=== PATIENT | female | born 1935 | race Caucasian/White ===

== ENCOUNTER → 2019-10-02 09:15 | Outpatient (REF) | payer MEDICARE, SELFPAY ==
[2019-10-02 12:26] LABS: Hematocrit 40.3 % (37-47); Hemoglobin 13.1 g/dL (12.0-15.0); Mean Corp Hgb Conc 32.5 g/dL (32-36); Mean Corpuscular Hgb 31.9 pg (27.0-32.0); Mean Corpuscular Volume 98.1 fL (81-99); Mean Platelet Vol. 11.6 fl (6.2-12.0); Platelet Count 275 K/mm3 (150-450); RBC Distribution Width CV 13.7 % (11.6-14.6); RBC Distribution Width SD 49.6 fl (35.1-43.9); Red Blood Count 4.11 M/mm3 (4.2-5.4); White Blood Count 8.3 K/mm3 (4.4-11.0)
[2019-10-02 12:48] LABS: AST(SGOT) 19 U/L (15-37); Alanine Aminotransfer ALT/SGPT 20 U/L (13-56); Albumin, Serum 3.2 g/dL (3.2-5.0); Alkaline Phosphatase 63 U/L (45-117); Anion Gap 9 (5-15); BUN 16 mg/dL (7-18); Calcium,Total 8.6 mg/dL (8.5-10.1); Chloride 105 mmol/L (98-107); Cholesterol 138 mg/dL (200); EST Glomerular Filtration Rate 56 mL/min (>60); Est Glom Filt Rate - Afr Amer 68 mL/min (>60); Globulin 3.1 g/dL (2.2-4.2); Glucose 96 mg/dL (74-106); High Density Lipoprotein 71 mg/dL; Potassium 3.4 mmol/L (3.5-5.1); Protein, Total 6.3 g/dL (6.4-8.2); Sodium Level 141 mmol/L (136-145); Triglycerides 110 mg/dL; Very Low Density Lipoprotein 22 mg/dL (5-40)
[2019-10-02 13:09] LABS: Hemoglobin A1c 6.2 % (3.8-5.6)
== END ==
PROVIDERS: PCP Family Medicine; Referring Provider Family Medicine; Visit Provider Family Medicine
DX: E11.9 Type 2 diabetes mellitus without complications (principal); I10 Essential (primary) hypertension; E78.5 Hyperlipidemia, unspecified
CPT/HCPCS: 80053; 80061; 83036; 85027

== ENCOUNTER → 2019-11-17 15:30 | Outpatient (REF) | payer MEDICARE, SELFPAY ==
[2019-11-17 16:50] LABS: Absolute Neutrophil Count 7.6 X10^3/uL (2.0-7.7); Basophil# 0.02 X10^3/uL; Basophil% 0.2 % (0-1); Eosinophil# 0.02 X10^3/uL; Eosinophils% 0.2 % (0-5); Hematocrit 38.3 % (37-47); Hemoglobin 12.3 g/dL (12.0-15.0); Lymphocyte % 18.1 % (19-41); Mean Corp Hgb Conc 32.1 g/dL (32-36); Mean Corpuscular Hgb 31.5 pg (27.0-32.0); Mean Corpuscular Volume 98.2 fL (81-99); Mean Platelet Vol. 11.9 fl (6.2-12.0); Monocyte% 11.8 % (0-10); NRBC Flagged by Analyzer 0 % (0-5); Neutrophil # 7.64 X10^3/uL (2.7-7.7); Neutrophil % 69.2 % (47-70); Platelet Count 259 K/mm3 (150-450); RBC Distribution Width CV 14.2 % (11.6-14.6); RBC Distribution Width SD 51.8 fl (35.1-43.9)
[2019-11-17 17:27] LABS: Anion Gap 6 (5-15); BUN 14 mg/dL (7-18); BUN/Creat Ratio 17.5 RATIO (10-20); Calcium,Total 8.6 mg/dL (8.5-10.1); Chloride 108 mmol/L (98-107); EST Glomerular Filtration Rate 73 mL/min (>60); Est Glom Filt Rate - Afr Amer 88 mL/min (>60); Glucose 101 mg/dL (74-106); Potassium 3.2 mmol/L (3.5-5.1); Sodium Level 147 mmol/L (136-145); Thyroid Stim Hormone (TSH) 1.18 uIU/mL (0.358-3.74)
== END ==
PROVIDERS: PCP Family Medicine; Visit Provider Family Medicine
DX: I50.42 Chronic combined systolic (congestive) and diastolic (congestive) heart failure (principal)
CPT/HCPCS: 80048; 84443; 85025

== ENCOUNTER → 2020-01-02 17:25 | Outpatient (REF) | payer MEDICARE, SELFPAY ==
[2020-01-03 11:42] LABS: Mucous, Urine 0 SEEN /hpf (<or=2+); Red Blood Cells-Urine 0 SEEN /hpf (0-5)
[2020-01-03 11:59] LABS: Color, Urine Yellow (Yellow); Glucose, Dipstick Normal (Normal); Ketone-Dipstick Negative (Negative); Leukocyte Esterase-Dipstick 500 /ul (Negative); Nitrite-Dipstick Negative (Negative); Occult Blood-Urine 10 /ul (Negative); Protein-Dipstick 15 mg/dl (Negative); Specific Gravity, Urine 1.015 (1.002-1.030); Urine Bilirubin Dipstick Negative (Negative); Urine Clarity Cloudy (Clear); Urine Urobilinogen Normal (Normal)
[2020-01-03 12:23] LABS: Squamous Epithelial Cells - UA 10-25 SEEN /hpf (5-10)
[2020-01-03 12:24] LABS: Bacteria 3+ /hpf (None Seen); White Blood Cells 50-100 SEEN /hpf (0-5)
== END ==
LOC: OLS.BROOKB 17:25
PROVIDERS: PCP Family Medicine; Referring Provider Family Medicine; Visit Provider Family Medicine
DX: R53.83 Other fatigue (principal); R41.0 Disorientation, unspecified
CPT/HCPCS: 81001; 87086; 87088; 87186

== ENCOUNTER → 2020-04-06 05:00 | Outpatient (REF) | payer MEDICARE, SELFPAY ==
[2020-04-06 06:48] LABS: Hematocrit 39.2 % (37-47); Hemoglobin 12.9 g/dL (12.0-15.0); Mean Corp Hgb Conc 32.9 g/dL (32-36); Mean Corpuscular Hgb 30.9 pg (27.0-32.0); Mean Platelet Vol. 11.2 fl (6.2-12.0); Platelet Count 287 K/mm3 (150-450); RBC Distribution Width CV 14.6 % (11.6-14.6); RBC Distribution Width SD 50.5 fl (35.1-43.9); Red Blood Count 4.17 M/mm3 (4.2-5.4); White Blood Count 11.5 K/mm3 (4.4-11.0)
[2020-04-06 07:24] LABS: ALB/GLOB Ratio 0.7 RATIO (0.9-2.4); AST(SGOT) 13 U/L (15-37); Alanine Aminotransfer ALT/SGPT 14 U/L (13-56); Albumin, Serum 2.5 g/dL (3.2-5.0); Alkaline Phosphatase 66 U/L (45-117); Anion Gap 6 (5-15); BUN 25 mg/dL (7-18); Calcium,Total 8.7 mg/dL (8.5-10.1); Chloride 105 mmol/L (98-107); Cholesterol 133 mg/dL (200); Creatinine, Serum 1.19 mg/dL (0.55-1.02); EST Glomerular Filtration Rate 46 mL/min (>60); Est Glom Filt Rate - Afr Amer 56 mL/min (>60); Globulin 3.4 g/dL (2.2-4.2); Glucose 65 mg/dL (74-106); High Density Lipoprotein 57 mg/dL; Potassium 2.7 mmol/L (3.5-5.1); Protein, Total 5.9 g/dL (6.4-8.2); Sodium Level 142 mmol/L (136-145); Triglycerides 114 mg/dL; Very Low Density Lipoprotein 23 mg/dL (5-40)
[2020-04-06 08:33] LABS: Hemoglobin A1c 5.2 % (3.8-5.6)
== END ==
LOC: OLS.BROOKB 05:00
PROVIDERS: PCP Family Medicine; Referring Provider Family Medicine; Visit Provider Family Medicine
DX: E11.9 Type 2 diabetes mellitus without complications (principal); I10 Essential (primary) hypertension
CPT/HCPCS: 36415; 80053; 80061; 83036; 85027

== ENCOUNTER → 2020-04-12 10:30 | Outpatient (REF) | payer MEDICARE, SELFPAY ==
[2020-04-12 12:17] LABS: Anion Gap 3 (5-15); BUN 13 mg/dL (7-18); BUN/Creat Ratio 12.1 RATIO (10-20); Calcium,Total 8.9 mg/dL (8.5-10.1); Chloride 109 mmol/L (98-107); Creatinine, Serum 1.07 mg/dL (0.55-1.02); EST Glomerular Filtration Rate 52 mL/min (>60); Est Glom Filt Rate - Afr Amer 63 mL/min (>60); Glucose 102 mg/dL (74-106); Sodium Level 145 mmol/L (136-145)
== END ==
LOC: OLS.BROOKB 10:30
PROVIDERS: PCP Family Medicine; Visit Provider Family Medicine
DX: E11.9 Type 2 diabetes mellitus without complications (principal); I10 Essential (primary) hypertension
CPT/HCPCS: 36415; 80048

== ENCOUNTER 2020-06-17 04:45 | Emergency (ER) | payer MEDICARE, SELFPAY ==
[2020-06-17 04:46] VITALS: BP 124/90; PULSE 64; RESP 16; TEMP 36.3; O2SAT 99; BMI 27.1
--- NOTE | 2020-06-17 04:55 | ED.DCSUM_ITS ---
- ER Visit Summary Date of Service: 06/17/20 Chief Complaint: Nausea, vomiting and diarrhea History of Present Illness: The patient is a 84 F who has nausea, vomiting and diarrhea. It started 1 hour prior to arrival. Patient is from [facility], dementia unit. The patient is currently denying any abdominal pain. She is alert and oriented to self only which is her baseline. No meds were given by EMS or the nursing facility. The patient is a full code. She had no vomiting with EMS in route. History is limited from the patient due to her dementia. Physical Examination: Vital signs reviewed. HEENT exam unremarkable. Heart is regular rate and rhythm without murmurs. Lungs are clear to auscultation. Abdomen is soft and nontender. Extremities reveal no edema. Skin exam normal. Neurologic exam shows the patient is alert to self only which is likely her bas bridget. She moves all 4 extremities equally. There is no facial droop or slurred speech. Test Results: White blood cell count is 15.1, potassium is 5.3 but the specimen was moderately hemolyzed. Chloride 108, glucose 130, BUN 23, creatinine 1.51. Emergency Department Course and Treatment: Patient was given normal saline and Zofran. Upon reevaluation the patient was sleeping comfortably. Her abdomen remains soft and nontender. I feel the patient can be discharged back to her facility. The will have her follow-up with the physician there. Treatment Plan: [] Disposition: Discharge Impression: Nausea, vomiting and diarrhea This note was generated with [employer] dictation software. It may contain incorrect words, spelling, and punctuation that were not noted in review of the chart prior to signing ED Disposition - Plan for ED Patient: Disposition: Home or Assisted Living Instructions: ED Diet for Vomiting or Diarrhea Adult Referrals: Lupis Newberry MD [Primary Care Provider] -
[2020-06-17] MEDS: Ondansetron 4 MG/2 ML Vial IV (05:08)
[2020-06-17 05:13] LABS: Absolute Lymphocyte Count 0.95 X10^3/uL (0.83-4.51); Absolute Neutrophil Count 13.3 X10^3/uL (2.0-7.7); Basophil# 0.06 X10^3/uL; Basophil% 0.4 % (0-1); Eosinophil# 0.03 X10^3/uL; Eosinophils% 0.2 % (0-5); Lymphocyte # 0.95 X10^3/ul (4.0); Lymphocyte % 6.3 % (19-41); Mean Corp Hgb Conc 33.3 g/dL (32-36); Mean Corpuscular Hgb 32.1 pg (27.0-32.0); Mean Corpuscular Volume 96.3 fL (81-99); Mean Platelet Vol. 10.9 fl (6.2-12.0); Monocyte% 4.6 % (0-10); NRBC Flagged by Analyzer 0 % (0-5); Neutrophil # 13.25 X10^3/uL (2.7-7.7); Neutrophil % 87.8 % (47-70); Platelet Count 290 K/mm3 (150-450); RBC Distribution Width CV 16.7 % (11.6-14.6); RBC Distribution Width SD 59.2 fl (35.1-43.9); Red Blood Count 4.05 M/mm3 (4.2-5.4); White Blood Count 15.1 K/mm3 (4.4-11.0)
[2020-06-17 05:35] LABS: AST(SGOT) 33 U/L (15-37); Alanine Aminotransfer ALT/SGPT 18 U/L (13-56); Albumin, Serum 3.2 g/dL (3.2-5.0); Alkaline Phosphatase 65 U/L (45-117); Anion Gap 5 (5-15); BUN 23 mg/dL (7-18); BUN/Creat Ratio 17.6 RATIO (10-20); Calcium,Total 8.8 mg/dL (8.5-10.1); Chloride 108 mmol/L (98-107); Creatinine, Serum 1.31 mg/dL (0.55-1.02); EST Glomerular Filtration Rate 41 mL/min (>60); Est Glom Filt Rate - Afr Amer 50 mL/min (>60); Estimated Creatinine Clearance 29.79 ml/min; Globulin 3.2 g/dL (2.2-4.2); Glucose 158 mg/dL (74-106); Lipase 79 U/L (73-393); Potassium 5.3 mmol/L (3.5-5.1); Protein, Total 6.4 g/dL (6.4-8.2); Sodium Level 140 mmol/L (136-145)
[2020-06-17 05:53] VITALS: BP 120/61; PULSE 68; RESP 18; O2SAT 100
== END 2020-06-17 07:35 | disposition home or self-care (01) ==
PROVIDERS: Emergency Provider Emergency Medicine; PCP Family Medicine
DX: R11.2 Nausea with vomiting, unspecified (principal); R19.7 Diarrhea, unspecified; E78.00 Pure hypercholesterolemia, unspecified; I10 Essential (primary) hypertension; E11.9 Type 2 diabetes mellitus without complications; F03.90 Unspecified dementia, unspecified severity, without behavioral disturbance, psychotic disturbance, mood disturbance, and anxiety; Z79.84 Long term (current) use of oral hypoglycemic drugs; Z79.82 Long term (current) use of aspirin
CPT/HCPCS: 80053; 83690; 85025; 96374; 99284; J7030; A4216; J2405

== ENCOUNTER → 2020-09-15 05:00 | Outpatient (REF) | payer MEDICARE, SELFPAY ==
[2020-09-15 08:13] LABS: Anion Gap 6 (5-15); BUN 20 mg/dL (7-18); BUN/Creat Ratio 20.5 RATIO (10-20); Chloride 108 mmol/L (98-107); Creatinine, Serum 0.98 mg/dL (0.55-1.02); EST Glomerular Filtration Rate 58 mL/min (>60); Est Glom Filt Rate - Afr Amer 70 mL/min (>60); Glucose 80 mg/dL (74-106); Potassium 3.9 mmol/L (3.5-5.1); Sodium Level 144 mmol/L (136-145)
== END ==
LOC: OLS.BROOKB 05:00
PROVIDERS: PCP Family Medicine; Referring Provider Family Medicine; Visit Provider Family Medicine
DX: Z79.899 Other long term (current) drug therapy (principal)
CPT/HCPCS: 36415; 80048

== ENCOUNTER → 2020-10-01 05:00 | Outpatient (REF) | payer MEDICARE, SELFPAY ==
[2020-10-01 08:31] LABS: Hematocrit 36.4 % (37-47); Hemoglobin 11.8 g/dL (12.0-15.0); Mean Corp Hgb Conc 32.4 g/dL (32-36); Mean Corpuscular Hgb 31.2 pg (27.0-32.0); Mean Corpuscular Volume 96.3 fL (81-99); Platelet Count 277 K/mm3 (150-450); RBC Distribution Width CV 14.4 % (11.6-14.6); RBC Distribution Width SD 51.2 fl (35.1-43.9); Red Blood Count 3.78 M/mm3 (4.2-5.4); White Blood Count 5.8 K/mm3 (4.4-11.0)
[2020-10-01 08:56] LABS: AST(SGOT) 19 U/L (15-37); Alanine Aminotransfer ALT/SGPT 19 U/L (13-56); Albumin, Serum 2.9 g/dL (3.2-5.0); Alkaline Phosphatase 68 U/L (45-117); Anion Gap 4 (5-15); BUN 18 mg/dL (7-18); BUN/Creat Ratio 19.4 RATIO (10-20); Calcium,Total 8.6 mg/dL (8.5-10.1); Chloride 109 mmol/L (98-107); Cholesterol 157 mg/dL (200); Creatinine, Serum 0.93 mg/dL (0.55-1.02); EST Glomerular Filtration Rate 61 mL/min (>60); Est Glom Filt Rate - Afr Amer 74 mL/min (>60); Glucose 74 mg/dL (74-106); High Density Lipoprotein 59 mg/dL; Potassium 4.1 mmol/L (3.5-5.1); Protein, Total 5.9 g/dL (6.4-8.2); Sodium Level 142 mmol/L (136-145); Triglycerides 88 mg/dL; Very Low Density Lipoprotein 18 mg/dL (5-40)
[2020-10-01 09:04] LABS: Hemoglobin A1c 5.2 % (3.8-5.6)
== END ==
LOC: OLS.BROOKB 05:00
PROVIDERS: PCP Family Medicine; Referring Provider Family Medicine; Visit Provider Family Medicine
DX: E11.9 Type 2 diabetes mellitus without complications (principal); I10 Essential (primary) hypertension; E78.5 Hyperlipidemia, unspecified
CPT/HCPCS: 36415; 80053; 80061; 83036; 85027

== ENCOUNTER 2020-12-22 10:47 | Emergency (ER) | payer MEDICARE, SELFPAY ==
[2020-12-22 10:49] VITALS: BP 176/78; PULSE 52; RESP 16; TEMP 36.6; O2SAT 100; BMI 27.1
--- NOTE | 2020-12-22 11:02 | CT_ITS ---
STUDY: CT BRAIN WITHOUT CONTRAST REASON FOR EXAM: Female, 85 years old. Head trauma due to a fall. Dementia. RADIATION DOSAGE (If Supplied By Facility): CTDIvol = ( 44.99 ) mGy, DLP = ( 745.49 ) mGycm TECHNIQUE: Transaxial CT imaging of the brain was performed without administration of intravenous contrast material. Individualized dose optimization techniques were used for this CT. COMPARISON: No relevant priors. FINDINGS: Mild degree of soft tissue swelling overlying the left frontal bone. Normal calvarium. There is moderate cerebral atrophy with widening of the extra-axial spaces and ventricular dilatation. There are areas of decreased attenuation within the white matter tracts of the supratentorial brain, consistent with microvascular disease changes. Normal basal ganglia and thalami. Normal brainstem. Normal cerebellum. There is no intracranial hemorrhage. There are no findings of an acute ischemic infarction. Normal visualized paranasal sinuses. CT/Brain/Head without Contrast IMPRESSION: Chronic involutional changes of the brain. Mild degree of soft tissue swelling overlying the left frontal bone. Electronically Signed: Sushil Hyatt MD at 12:13 EDT , Service support ,
--- NOTE | 2020-12-22 11:02 | RAD_ITS ---
STUDY: X-RAY - PELVIS REASON FOR EXAM: Female, 85 years old. Fall TECHNIQUE: One view of the pelvis was obtained. COMPARISON: None. FINDINGS: Moderate amount of fecal material is seen in the colon. Normal visualized soft tissue structures. There is narrowing with cortical sclerosis and osteophyte formation of the sacroiliac joint consistent with degenerative osteoarthritic changes. Normal visualized bilateral superior and inferior pubic rami. There are degenerative changes of the pubic symphysis with articular narrowing and sclerosis. Normal ischial tuberosities. Normal visualized right femoral head. Normal right acetabulum. There is moderate articular joint space narrowing of the right hip. Normal visualized left femoral head. Normal left acetabulum. There is moderate articular joint space narrowing of the left hip. RAD/Pelvis 1 or 2 Views IMPRESSION: Degenerative changes. No fractures seen. Electronically Signed: Sushil Hyatt MD at 12:16 EDT , Service support ,
--- NOTE | 2020-12-22 11:04 | EDS_ITS ---
HPI HPI - Fall History of Present Illness Chief Complaint: Fall Informant: patient and EMS Occured/Mechanism Occurred: Today Narrative Narrative: Very limited history available on this very demented elderly female presenting from memory unit after a fall that was unwitnessed. She apparently was last seen a couple hours before someone noticed her on the floor with blood on her head. She was conscious. She is confused and it is unknown whether this is different from her baseline. Patient states she does not feel like she is in pain, however history is extremely limited due to her dementia, and exam is limited due to the fact that the patient gets very nasty during my exam, swinging at my hand as I try to examine her multiple times. [facility] Medical History (Updated 12/22/20 @ 16:[address] Gentry Rhodes MD) Dementia HTN (hypertension) Hyperlipidemia Type 2 diabetes mellitus Home Medications aspirin 81 mg PO DAILY@0800 06/17/20 [History Last Taken Unknown] buspirone 10 mg PO TID 06/17/20 [History Last Taken Unknown] divalproex 125 mg PO BIDCM 06/17/20 [History Last Taken Unknown] furosemide 40 mg PO DAILY 06/17/20 [History Last Taken Unknown] lisinopril 20 mg PO DAILY 06/17/20 [History Last Taken Unknown] meloxicam 7.5 mg PO DAILY 06/17/20 [History Last Taken Unknown] memantine 1 each PO BID 06/17/20 [History Last Taken Unknown] metformin 250 mg PO BID 06/17/20 [History Last Taken Unknown] metoprolol succinate 50 mg PO DAILY 06/17/20 [History Last Taken Unknown] potassium 20 meq PO DAILY 06/17/20 [History Last Taken Unknown] sertraline 50 mg PO DAILY 06/17/20 [History Last Taken Unknown] simvastatin 40 mg PO QHS 06/17/20 [History Last Taken Unknown] Allergy/AdvReac Type Severity Reaction Status Date / Time No Known Allergies Allergy Verified 06/17/20 04:54 Social History Smoking Status: Former smoker ROS ROS ED Review of Systems ROS Unobtainable: due to mental condition EXAM Physical Exam Const Vital Signs: 12/22/20 10:49 12/22/20 11:48 12/22/20 12:48 Temperature 97.8 F Temperature Source Temporal Pulse Rate 52 L 50 L Respiratory Rate 16 16 Respiratory Effort Normal Non-Labored Respiratory Depth Normal Respiratory Pattern Normal Blood Pressure 176/78 H 171/51 H Blood Pressure Mean 110 91 Pulse Ox 100 100 Oxygen Delivery Method Room Air Room Air Room Air 12/22/20 14:00 12/22/20 15:34 Temperature Temperature Source Pulse Rate 71 Respiratory Rate 16 18 Respiratory Effort Respiratory Depth Respiratory Pattern Blood Pressure 165/85 H Blood Pressure Mean Pulse Ox 98 Oxygen Delivery Method Positive well nourished and well developed General Appearance ED: well developed and NAD HEENT Reports moist mucous membranes HEENT Narrative: Left frontal scalp small abrasion without laceration. No crepitance or depression. Not able to evaluate tympanic membranes due to patient swatting the examiner away and screaming at me. She has no otorrhea or bleeding on gross inspection. Mild tenderness to the nose without deformity, clotted blood at both nares without active bleeding, face is otherwise stable and nontender with no signs of trauma. normocephalic Eyes PERRL and EOMs intact bilaterally Neck full ROM and supple Resp normal respiratory effort and clear to auscultation bilaterally Cardio regular rate, regular rhythm and no murmurs GI non-tender and non-distended Auscultation: normoactive bowel sounds Palpation: soft Back/Spine no CVA tenderness General Back: other FROM Cervical Spine: Negative for cervical spine tenderness Thoracic Spine / Upper Back: Negative for thoracic spinal tenderness Lumbar Spine / Lower Back: Negative for lumbar spinal tenderness Extremity normal to inspection Extremity Narrative: Multiple contusions both forearms, nothing is acutely tender. No deformities. Passive range of motion throughout all joints without any acute pain, all 4 extremities. General Extremety ED: Yes edema; Negative for pulses abnormal or tenderness General Extremity: edema bilateral lower extremity Details: moderate; Negative for pulses abnormal Neuro CN's II-XII intact bilaterally and no sensory deficits noted Sahra Coma Scale: document GCS findings To Voice Localizes to Pain Confused 12 Sensorium / Orientation: awake, alert and orientation impaired Motor Exam: strength 5/5 throughout Skin no rashes or lesions noted Skin Narrative: Multiple contusions both forearms MDM MDM MDM Narrative Medical decision making narrative: CT head showing evidence of soft tissue contusion and no intracranial hemorrhage as below, a mitral rotation 1 view pelvis x-ray and 1 view chest x-ray also showed nothing acute. There is some cardiomegaly. We were able to clean the patient up and get her on her feet, she is able to bear weight with some assistance without any difficulty, I think she is stable to go back to assisted living/memory unit at this time. Certainly is possible she cracked her nose but she complains of no pain unless I press on it, I do not think she needs a CT of the face and she has no signs of facial instability or other injury there. Radiography Diagnostic Testing: Radiology Impression Brain CT 12/22/20 11:02 IMPRESSION: Chronic involutional changes of the brain. Mild degree of soft tissue swelling overlying the left frontal bone. Electronically Signed: Sushil Hyatt MD at 12:13 EDT , Service support , Pelvis X-Ray 12/22/20 11:02 IMPRESSION: Degenerative changes. No fractures seen. Electronically Signed: Sushil Hyatt MD at 12:16 EDT , Service support , Chest X-Ray 12/22/20 11:40 IMPRESSION: Cardiomegaly. Electronically Signed: Sushil Hyatt MD at 12:17 EDT , Service support , Discharge Plan Triage Chief Complaint: Fall ED Provider: Gentry Rhodes Dx/Rx/DC Orders Clinical Impression: Fall in elderly patient, Closed head injury without concussion, Contusion of nose Instructions: ED Head Injury (Adult) Prescriptions: No Action furosemide 40 MG tablet 40 mg PO DAILY RF: 0 buspirone 5 MG tablet 10 mg PO TID RF: 0 metformin 500 MG tablet 250 mg PO BID RF: 0 lisinopril 20 MG tablet 20 mg PO DAILY RF: 0 aspirin 81 MG tablet 81 mg PO DAILY@0800 RF: 0 meloxicam 7.5 MG tablet 7.5 mg PO DAILY RF: 0 divalproex 125 MG tablet 125 mg PO BIDCM RF: 0 memantine 1 EACH tablets,dose pack 1 each PO BID RF: 0 metoprolol succinate 50 MG tablet extended release 24 hr 50 mg PO DAILY RF: 0 simvastatin 40 MG tablet 40 mg PO QHS RF: 0 potassium 99 MG tablet 20 meq PO DAILY RF: 0 sertraline 50 MG tablet 50 mg PO DAILY RF: 0 Primary Care Provider: Lupis Newberry Referrals: Lupis Newberry MD [Primary Care Provider] - 3-5 Days if not improving Disposition Disposition: Home, Self Care Discharge Date/Time: 12/22/20 15:34
--- NOTE | 2020-12-22 11:40 | RAD_ITS ---
STUDY: X-RAY CHEST REASON FOR EXAM: Female, 85 years old. Fall TECHNIQUE: Single AP portable view of the chest. COMPARISON: None. FINDINGS: The lungs are clear and expanded. There is no demonstrated pleural abnormality. There is moderate cardiac enlargement. Normal mediastinum and mu. Normal visualized pulmonary arteries. There is atherosclerotic calcification of the aortic arch with tortuosity. There are degenerative changes of the visualized thoracic spine. Normal visualized ribs, clavicles, and shoulders. There is no demonstrated abnormality of the visualized soft tissue structures of the upper abdomen. RAD/Chest 1 View (Portable) IMPRESSION: Cardiomegaly. Electronically Signed: uSshil Hyatt MD at 12:17 EDT , Service support ,
--- NOTE | 2020-12-22 12:47 | ED.RN ---
REPORT TO DIEGO FERNANDEZ AT [facility]. CURRENTLY AWAITING TRANSPORT.
[2020-12-22 12:48] VITALS: BP 171/51; PULSE 50; RESP 16; O2SAT 100
--- NOTE | 2020-12-22 13:00 | NURSING ---
CALLED [facility], TALKED TO GHAZAL. ETA IS 90 MIN
[2020-12-22 14:00] VITALS: RESP 16
[2020-12-22 15:34] VITALS: BP 165/85; PULSE 71; RESP 18; O2SAT 98
== END 2020-12-22 15:34 | disposition home or self-care (01) ==
PROVIDERS: Emergency Provider Emergency Medicine; PCP Family Medicine
DX: S09.90XA Unspecified injury of head, initial encounter (principal); S00.33XA Contusion of nose, initial encounter; W19.XXXA Unspecified fall, initial encounter; Z87.891 Personal history of nicotine dependence
CPT/HCPCS: 70450; 71045; 72170; 99285

== ENCOUNTER → 2020-12-23 09:00 | Outpatient (REF) | payer MEDICARE, SELFPAY ==
[2020-12-23 10:46] LABS: Absolute Lymphocyte Count 1.66 X10^3/uL (0.83-4.51); Absolute Neutrophil Count 5.7 X10^3/uL (2.0-7.7); Basophil# 0.04 X10^3/uL; Basophil% 0.5 % (0-1); Eosinophil# 0.02 X10^3/uL; Eosinophils% 0.2 % (0-5); Hematocrit 38.7 % (37-47); Hemoglobin 12.4 g/dL (12.0-15.0); Lymphocyte # 1.66 X10^3/ul (0.83-4.51); Lymphocyte % 20.5 % (19-41); Mean Corpuscular Hgb 30.5 pg (27.0-32.0); Mean Corpuscular Volume 95.3 fL (81-99); Mean Platelet Vol. 11.8 fl (6.2-12.0); Monocyte# 0.67 X10^3/uL; Monocyte% 8.3 % (0-10); NRBC Flagged by Analyzer 0 % (0-5); Neutrophil # 5.66 X10^3/uL (2.7-7.7); Neutrophil % 70.1 % (47-70); Platelet Count 262 K/mm3 (150-450); RBC Distribution Width CV 15.3 % (11.6-14.6); RBC Distribution Width SD 53.3 fl (35.1-43.9); Red Blood Count 4.06 M/mm3 (4.2-5.4); White Blood Count 8.1 K/mm3 (4.4-11.0)
[2020-12-23 11:02] LABS: ALB/GLOB Ratio 0.7 RATIO (0.9-2.4); AST(SGOT) 39 U/L (15-37); Alanine Aminotransfer ALT/SGPT 21 U/L (13-56); Albumin, Serum 2.4 g/dL (3.2-5.0); Alkaline Phosphatase 82 U/L (45-117); Anion Gap 5 (5-15); BUN 20 mg/dL (7-18); BUN/Creat Ratio 27.9 RATIO (10-20); Calcium,Total 8.7 mg/dL (8.5-10.1); Chloride 111 mmol/L (98-107); Creatinine, Serum 0.72 mg/dL (0.55-1.02); EST Glomerular Filtration Rate 83 mL/min (>60); Est Glom Filt Rate - Afr Amer 100 mL/min (>60); Globulin 3.3 g/dL (2.2-4.2); Glucose 69 mg/dL (74-106); Potassium 4.3 mmol/L (3.5-5.1); Protein, Total 5.7 g/dL (6.4-8.2); Sodium Level 142 mmol/L (136-145); Thyroid Stim Hormone (TSH) 3.36 uIU/mL (0.358-3.74)
== END ==
LOC: OLS.BROOKB 09:00
PROVIDERS: PCP Family Medicine; Visit Provider Family Medicine
DX: R41.82 Altered mental status, unspecified (principal)
CPT/HCPCS: 36415; 80053; 84443; 85025

== ENCOUNTER 2020-12-25 06:54 | Emergency (ER) | payer MEDICARE, SELFPAY ==
[2020-12-25 06:55] VITALS: BP 136/84; PULSE 71; RESP 18; TEMP 36.6; O2SAT 97; BMI 29.2
--- NOTE | 2020-12-25 07:30 | CT_ITS ---
HISTORY: Injury/Pain. TECHNIQUE: Multiple axial images were obtained of the brain without intravenous contrast. A radiation dose optimization technique was used for this scan. # of images incl. paperwork: 245. COMPARISON: 12/22/2020. FINDINGS: BRAIN PARENCHYMA:Multiple small foci and zones of low attenuation in the cerebral white matter most compatible with chronic small vessel ischemic gliosis. INTRACRANIAL HEMORRHAGE: No acute intracranial hemorrhage. CSF SPACES/MASS EFFECT: Diffuse atrophy with compensatory ventricular enlargement. No midline shift or other significant mass effect. ORBITS: Unremarkable. CALVARIUM: Intact. Decreased left frontal scalp contusion. PARANASAL SINUSES AND MASTOID AIR CELLS: Clear. CT/Brain/Head without Contrast IMPRESSION: No acute intracranial process identified. Chronic small vessel ischemic gliosis. Individualized dose optimization techniques were used for this CT. at 0810 Reported and signed by: Lizbeth Soliman MD Electronically Signed: Lizbeth Soliman MD at 8:09 EDT Tel , Service support ,
--- NOTE | 2020-12-25 07:30 | CT_ITS ---
HISTORY: Injury/Pain. TECHNIQUE: Helically acquired images were obtained of the cervical spine. 2D reformatted images were reviewed. A radiation dose optimization technique was used for this scan. # of images incl. paperwork: 404. IV Contrast dosage and agent: None. COMPARISON: None. FINDINGS: VERTEBRAE: No acute fracture identified. VERTEBRAL ALIGNMENT: Minimal anterolisthesis of C2-3, C3-4, C4-5, and C7-T1. Reversal of the cervical lordosis. DISCS: Degenerative discogenic changes. Posterior disc bulge osteophyte complexes with uncovertebral and facet arthropathy. Mild central canal stenosis at multiple levels. Foraminal narrowing at multiple levels. SOFT TISSUES: No prevertebral soft tissue swelling. Multinodular thyroid. CT/Spine Cervical without Contras IMPRESSION: No evidence of acute cervical spinal fracture or dislocation. Multilevel degenerative change. Individualized dose optimization techniques were used for this CT. at 0813 Reported and signed by: Lizbeth Soliman MD Electronically Signed: Lizbeth Soliman MD at 8:12 EDT Tel , Service support ,
--- NOTE | 2020-12-25 07:55 | EDS_ITS ---
HPI History of Present Illness Chief Complaint: Head Injury Informant: patient and SNF Limited: dementia Onset/Context/Timing Onset: Today Mechanism/Context: Fall Location: Head Narrative Narrative: Patient presents after a fall that occurred this morning. Patient has a history of dementia and is a poor historian. Staff at the [facility] reports that the patient fell out of bed. Staff noted some bleeding from the nose. Patient denies any neck pain. Staff is unsure if there was any loss of consciousness. [facility] Medical History Dementia HTN (hypertension) Hyperlipidemia Type 2 diabetes mellitus Home Medications aspirin 81 mg PO DAILY@0800 06/17/20 [History Last Taken Unknown] buspirone 10 mg PO TID 06/17/20 [History Last Taken Unknown] divalproex 125 mg PO BIDCM 06/17/20 [History Last Taken Unknown] furosemide 40 mg PO DAILY 06/17/20 [History Last Taken Unknown] lisinopril 20 mg PO DAILY 06/17/20 [History Last Taken Unknown] meloxicam 7.5 mg PO DAILY 06/17/20 [History Last Taken Unknown] memantine 1 each PO BID 06/17/20 [History Last Taken Unknown] metformin 250 mg PO BID 06/17/20 [History Last Taken Unknown] metoprolol succinate 50 mg PO DAILY 06/17/20 [History Last Taken Unknown] potassium 20 meq PO DAILY 06/17/20 [History Last Taken Unknown] sertraline 50 mg PO DAILY 06/17/20 [History Last Taken Unknown] simvastatin 40 mg PO QHS 06/17/20 [History Last Taken Unknown] Allergy/AdvReac Type Severity Reaction Status Date / Time No Known Allergies Allergy Verified 06/17/20 04:54 Social History Smoking Status: Former smoker ROS ROS ED Review of Systems ROS Unobtainable: due to mental status EXAM Physical Exam Const Vital Signs: 12/25/20 06:55 12/25/20 07:18 12/25/20 09:05 Temperature 97.9 F Temperature Source Temporal Pulse Rate 71 Respiratory Rate 18 Respiratory Effort Normal Blood Pressure 136/84 H 153/101 H Blood Pressure Mean 101 118 Pulse Ox 97 Oxygen Delivery Method Room Air Room Air Positive cachectic General Appearance ED: cachectic and NAD Nutritional Appearance: cachectic HEENT HEENT Narrative: There is some mild tenderness over the occiput and upper cervical paraspinal muscles. There is no bony crepitance or step-off. tenderness Eyes PERRL and EOMs intact bilaterally Neck General: tenderness Chest Wall inspection of chest normal and palpation of chest normal Resp normal respiratory effort and clear to auscultation bilaterally Cardio regular rhythm Rate: regular rate GI non-tender Palpation: soft Extremity normal to inspection General Extremety ED: Yes edema; Negative for tenderness General Extremity: edema Neuro CN's II-XII intact bilaterally, moves all extremities, no focal motor deficits and no sensory deficits noted Sensorium / Orientation: alert, oriented to person and orientation impaired Psych mental status grossly normal MDM MDM MDM Narrative Medical decision making narrative: CT scan of the brain was obtained. There is no acute intracranial abnormality noted. There are chronic changes noted. This was interpreted by the radiologist and reviewed by myself. CT scan of the cervical spine was obtained. There is no acute fracture or dislocation noted. There are degenerative changes noted. This was interpreted by the radiologist and reviewed by myself. X-rays of the right elbow were obtained. There are 6 views. On my interpretation, there is no acute fracture. There is no dislocation. There is no soft tissue swelling. Radiologist also interpreted the x-rays and agrees. Daughter was advised of the findings. Patient will be discharged back to the extended care facility. Patient will follow up with her primary care physician in 3 to 5 days. Daughter understood and were agreeable with the plan. All questions were answered. Radiography Diagnostic Testing: Radiology Impression Brain CT 12/25/20 07:30 IMPRESSION: No acute intracranial process identified. Chronic small vessel ischemic gliosis. Individualized dose optimization techniques were used for this CT. at 0810 Reported and signed by: Lizbeth Soliman MD Electronically Signed: Lizbeth Soliman MD at 8:09 EDT Tel , Service support , Cervical Spine CT 12/25/20 07:30 IMPRESSION: No evidence of acute cervical spinal fracture or dislocation. Multilevel degenerative change. Individualized dose optimization techniques were used for this CT. at 0813 Reported and signed by: Lizbeth Soliman MD Electronically Signed: Lizbeth Soliman MD at 8:12 EDT Tel , Service support , Elbow X-Ray 12/25/20 09:24 IMPRESSION: No acute fracture or dislocation identified. Degenerative changes in the right elbow. at 0952 Reported and signed by: Lizbeth Soliman MD Electronically Signed: Lizbeth Soliman MD at 9:51 EDT Tel , Service support , Discharge Plan Triage Chief Complaint: Head Injury ED Provider: Lukas Galloway Dx/Rx/DC Orders Clinical Impression: Fall in elderly patient, Closed head injury without concussion, Contusion of right elbow, initial encounter Instructions: ED Head Injury (Adult) Prescriptions: No Action furosemide 40 MG tablet 40 mg PO DAILY RF: 0 buspirone 5 MG tablet 10 mg PO TID RF: 0 metformin 500 MG tablet 250 mg PO BID RF: 0 lisinopril 20 MG tablet 20 mg PO DAILY RF: 0 aspirin 81 MG tablet 81 mg PO DAILY@0800 RF: 0 meloxicam 7.5 MG tablet 7.5 mg PO DAILY RF: 0 divalproex 125 MG tablet 125 mg PO BIDCM RF: 0 memantine 1 EACH tablets,dose pack 1 each PO BID RF: 0 metoprolol succinate 50 MG tablet extended release 24 hr 50 mg PO DAILY RF: 0 simvastatin 40 MG tablet 40 mg PO QHS RF: 0 potassium 99 MG tablet 20 meq PO DAILY RF: 0 sertraline 50 MG tablet 50 mg PO DAILY RF: 0 Primary Care Provider: Lupis Newberry Referrals: Lupis Newberry MD [Primary Care Provider] - 5-7 Days Disposition Disposition: Senior Living Facility Discharge Location: [facility]
--- NOTE | 2020-12-25 08:43 | ED.RN ---
provider aware that daughter is requesting pain meds for pt. updated daughter.
[2020-12-25 09:05] VITALS: BP 153/101
--- NOTE | 2020-12-25 09:24 | RAD_ITS ---
HISTORY: Injury/Pain. TECHNIQUE: XR Elbow Min 3 Views. # of images incl. paperwork: 5. COMPARISON: None. FINDINGS: BONES: No acute fracture identified. Mild osteopenia. JOINTS: No dislocation. Degenerative changes. RAD/Elbow min 3 Views IMPRESSION: No acute fracture or dislocation identified. Degenerative changes in the right elbow. at 0952 Reported and signed by: Lizbeth Soliman MD Electronically Signed: Lizbeth Soliman MD at 9:51 EDT Tel , Service support ,
[2020-12-25] MEDS: Morphine 2 MG/ML Syringe IM (10:19)
[2020-12-25 10:26] VITALS: BP 112/67; PULSE 62
[2020-12-25 11:19] VITALS: BP 138/83
--- NOTE | 2020-12-25 12:13 | ED.RN ---
DAUGHTER FRUSTRATED D/T LENGTH OF WAIT FOR TRANSPORT. THIS RN AND CHARGE NURSE DISCUSSED WITH DAUGHTER HER TAKING THE PT VS EMS TRANSPORT AT THE TIME OF THE PT RECEIVING A MORPHINE INJECTION. THE DAUGHTER HAD BEEN FRUSTRATED D/T LAST VISIT HER SISTER HAD TO WAIT ON TRANSPORT. EXPLAINED TO THE DAUGHTER THAT THE PT HAD MORPHINE AND WOULD BE SLEEPY AND THAT HER CLOTHING HAD BEEN CUT OFF. DAUGHTER DECIDED ON EMS TRANSPORT. DAUGHTER FRUSTRATED AT THIS TIME ON THE WAIT OF TRANSPORT. APOLOGIZED TO DAUGHTER.
--- NOTE | 2020-12-25 12:32 | ED.RN ---
THIS RN HAD DIRECTOR OF PRODUCT DESIGN TO CALL AND CHECK ON TRANSPORT, PHYSICIANS NOT SURE WHEN THEY WILL E BUSINESS SPECIALIST. DAUGHTER INFORMED ABOUT DELAY.
--- NOTE | 2020-12-25 12:39 | ED.RN ---
[facility] CALLED BACK, OUT SOURCED TO [facility]. THEY SHOULD BE HERE IN APPROX 30 MIN. DAUGHTER AWARE.
--- NOTE | 2020-12-25 12:58 | ED.RN ---
EMS IN DEPARTMENT
== END 2020-12-25 13:04 | disposition skilled nursing facility (03) ==
PROVIDERS: Emergency Provider Emergency Medicine; PCP Family Medicine
DX: S09.90XA Unspecified injury of head, initial encounter (principal); S50.01XA Contusion of right elbow, initial encounter; W06.XXXA Fall from bed, initial encounter; Z87.891 Personal history of nicotine dependence
CPT/HCPCS: 70450; 72125; 73080; 96372; 99285; A4216